=== PATIENT | female | born 1980 | race Caucasian/White ===

== ENCOUNTER 2020-06-19 08:48 | Outpatient (CLI) | payer BC | END 2020-06-19 08:49 | disposition home or self-care (01) | LOC: CSHMAMMO 08:48 | PROVIDERS: ATTEND Family Medicine | DX: Z12.31 Encounter for screening mammogram for malignant neoplasm of breast (principal) | CPT/HCPCS: 77063; 77067 ==

== ENCOUNTER 2021-10-05 13:43 | Outpatient (CLI) | payer BC | END 2021-10-05 13:44 | disposition home or self-care (01) | LOC: CSHMAMMO 13:43 | PROVIDERS: ATTEND Family Medicine | DX: Z12.31 Encounter for screening mammogram for malignant neoplasm of breast (principal) | CPT/HCPCS: 77063; 77067 ==

== ENCOUNTER 2022-12-09 15:05 | Outpatient (CLI) | payer OTHER | END 2022-12-09 15:06 | disposition home or self-care (01) | LOC: CSHMAMMO 15:05 | PROVIDERS: ATTEND Family Medicine | DX: Z12.31 Encounter for screening mammogram for malignant neoplasm of breast (principal) | CPT/HCPCS: 77063; 77067 ==